=== PATIENT | female | born 1950 | race Caucasian/White ===

== ENCOUNTER → 2024-05-27 | Outpatient (CLI) | payer OTHER ==
[~2024-05-27] MED LIST: AZIT250T9 PO; FENTanyl CITRate PF 50 MCG/1 ML 2ML VIAL ONE; IPRA3AMP24 IH; MIDAZOLAM HCL 1 MG/ML 2ML VIAL ONE; PRED10TA3 PO; SUCCINYLCHOLINE CHLORIDE 20 MG/ML 10 ML VIAL ONE; ePHEDrine SULFate 50 MG/ML AMPULE ONE; proPOFol 10 MG/ML 20ML VIAL IV ONE
--- NOTE | 2024-05-27 14:49 | HMCIMG ---
DEXA BONE DENSITY SURVEY HISTORY: No additional history given. COMPARISON: None FINDINGS: Bone densitometry study was performed. Bone mineral density of the lumbar spine is 0.563 gram per centimeter square which corresponds to a T score of -4.4 and a Z score of -2.2. Bone mineral density of the left hip is 0.592 grams per centimeter square which corresponds to a T score of -2.9 and a Z score of -1.2. IMPRESSION: 1. Osteoporosis of the lumbar spine and left hip.
== END | disposition home or self-care (01) ==
LOC: RAH 13:29
PROVIDERS: ATTEND Family Medicine
DX: M81.0 Age-related osteoporosis without current pathological fracture (principal)
CPT/HCPCS: 77080